=== PATIENT | male | born 1955 | race Caucasian/White ===

== ENCOUNTER 2017-12-09 16:08 | Emergency (ER) | payer OTHER ==
[~2017-12-09] VITALS: Ht 180.3 cm; Wt 68.2 kg
[2017-12-09] MEDS ORDERED: LISI-662 PO (16:35)
[2017-12-09] MEDS ORDERED: AMLO-512 PO (16:35)
[2017-12-09] MEDS ORDERED: CETI-290 PO (16:35)
[2017-12-09] MEDS ORDERED: GABA-531 PO (16:35)
[2017-12-09] MEDS ORDERED: TraMADol HCL 50 MG TABLET PO ONE (18:45)
[2017-12-09] MEDS ORDERED: LIDOCAINE HCL 5% TRANSDERMAL PATCH TD ONE (18:45)
[2017-12-09] MEDS ORDERED: KETOROLAC TROMETHAMINE 10 MG TABLET PO ONE (18:45)
[2017-12-09 19:51] VITALS: BP 138/81
== END 2017-12-09 20:03 | disposition home or self-care (01) ==
LOC: EMS 16:10
DX: M54.5 Low back pain (principal); I10 Essential (primary) hypertension; G89.29 Other chronic pain
CPT/HCPCS: 72100; 99284